=== PATIENT | female | born 1980 | race Caucasian/White ===

== ENCOUNTER → 2023-07-08 09:16 | Outpatient (REF) | payer BC, SELFPAY | LOC: WDC 09:16 | PROVIDERS: ATTENDING PHYSICIAN Nurse Practitioner Family | DX: N63.15 Unspecified lump in the right breast, overlapping quadrants (principal) | CPT/HCPCS: 76642; 77061; 77065 ==

== ENCOUNTER → 2023-11-16 11:00 | Outpatient (REF) | payer BC, SELFPAY | LOC: WDC 11:00 | PROVIDERS: ATTENDING PHYSICIAN Nurse Practitioner Family | DX: Z12.31 Encounter for screening mammogram for malignant neoplasm of breast (principal) | CPT/HCPCS: 77063; 77067 ==

== ENCOUNTER → 2024-11-16 11:49 | Outpatient (REF) | payer BC, SELFPAY | LOC: WDC 11:49 | PROVIDERS: ATTENDING PHYSICIAN Nurse Practitioner Family | DX: Z12.31 Encounter for screening mammogram for malignant neoplasm of breast (principal) | CPT/HCPCS: 77063; 77067 ==